=== PATIENT | male | born 1965 | race Two or more races ===

== ENCOUNTER 2024-06-20 08:29 | Outpatient (CLI) | payer OTHER | END 2024-06-20 08:41 | disposition home or self-care (01) | LOC: MRI 08:29 | PROVIDERS: ATTEND Specialist | DX: M54.42 Lumbago with sciatica, left side (principal) | CPT/HCPCS: 72148 ==

== ENCOUNTER 2024-11-17 08:35 | Outpatient (CLI) | payer OTHER | END 2024-11-17 08:44 | disposition home or self-care (01) | LOC: MRI 08:35 | PROVIDERS: ATTEND Specialist | DX: G89.11 Acute pain due to trauma (principal) | CPT/HCPCS: 73218 ==

== ENCOUNTER 2025-02-01 07:47 | Outpatient (CLI) | payer OTHER | END 2025-02-01 07:56 | disposition home or self-care (01) | LOC: SONOGRAMA 07:47 | PROVIDERS: ATTEND General Practice | DX: R10.10 Upper abdominal pain, unspecified (principal); K21.9 Gastro-esophageal reflux disease without esophagitis; R94.5 Abnormal results of liver function studies; K76.9 Liver disease, unspecified ==

== ENCOUNTER 2025-02-15 07:03 | Outpatient (CLI) | payer OTHER | END 2025-02-15 07:05 | disposition home or self-care (01) | LOC: TOM 07:03 | PROVIDERS: ATTEND General Practice | DX: K76.89 Other specified diseases of liver (principal); N28.1 Cyst of kidney, acquired; K82.4 Cholesterolosis of gallbladder; K82.8 Other specified diseases of gallbladder ==